=== PATIENT | male | born 1980 | race Caucasian/White ===

== ENCOUNTER → 2017-03-14 | Outpatient (CLI) | payer OTHER ==
[2017-03-14 15:25] LABS: HEMOGLOBIN 15.1 g/dl (13.5-18.0)
[2017-03-14 15:26] LABS: HEMATOCRIT 41.6 % (42.0-52.0)
== END ==
LOC: COL.LAB 14:54
PROVIDERS: Internal Medicine
DX: E83.110 Hereditary hemochromatosis (principal)

== ENCOUNTER → 2017-04-02 | Outpatient (CLI) | payer OTHER ==
[2017-04-02 12:33] LABS: HEMATOCRIT 43.6 % (42.0-52.0); HEMOGLOBIN 15.9 g/dl (13.5-18.0)
== END ==
LOC: COL.LAB 11:05
PROVIDERS: Internal Medicine
DX: E83.110 Hereditary hemochromatosis (principal)

== ENCOUNTER → 2017-04-16 | Outpatient (CLI) | payer OTHER ==
[2017-04-16 14:38] LABS: HEMATOCRIT 40.7 % (42.0-52.0); HEMOGLOBIN 14.7 g/dl (13.5-18.0)
== END ==
LOC: COL.LAB 13:58
PROVIDERS: Internal Medicine
DX: E83.110 Hereditary hemochromatosis (principal)

== ENCOUNTER → 2017-04-30 | Outpatient (CLI) | payer OTHER ==
[2017-04-30 15:45] LABS: HEMATOCRIT 44.8 % (42.0-52.0); HEMOGLOBIN 15.9 g/dl (13.5-18.0)
== END ==
LOC: COL.LAB 14:10
PROVIDERS: Internal Medicine
DX: E83.110 Hereditary hemochromatosis (principal)

== ENCOUNTER → 2017-05-21 | Outpatient (CLI) | payer OTHER ==
[2017-05-21 11:38] LABS: HEMOGLOBIN 15.1 g/dl (13.5-18.0)
[2017-05-21 11:39] LABS: HEMATOCRIT 42.1 % (42.0-52.0)
== END ==
LOC: COL.LAB 10:52
PROVIDERS: Internal Medicine
DX: E83.110 Hereditary hemochromatosis (principal)

== ENCOUNTER → 2017-08-13 | Outpatient (CLI) | payer BC ==
[2017-08-13 10:33] LABS: HEMATOCRIT 45.6 % (42.0-52.0); HEMOGLOBIN 16.5 g/dl (13.5-18.0)
== END ==
LOC: COL.LAB 10:22
PROVIDERS: Internal Medicine
DX: E83.110 Hereditary hemochromatosis (principal)

== ENCOUNTER → 2017-08-27 | Outpatient (CLI) | payer BC ==
[2017-08-27 10:50] LABS: HEMOGLOBIN 15.6 g/dl (13.5-18.0)
[2017-08-27 10:56] LABS: HEMATOCRIT 42.8 % (42.0-52.0)
== END ==
LOC: COL.LAB 09:59
PROVIDERS: Internal Medicine
DX: E83.110 Hereditary hemochromatosis (principal)

== ENCOUNTER → 2017-09-10 | Outpatient (CLI) | payer BC ==
[2017-09-10 15:44] LABS: HEMOGLOBIN 14.7 g/dl (13.5-18.0)
== END ==
LOC: COL.LAB 14:10
PROVIDERS: Internal Medicine
DX: Z01.89 Encounter for other specified special examinations (principal)

== ENCOUNTER → 2017-11-05 | Outpatient (CLI) | payer BC ==
[2017-11-05 16:34] LABS: HEMATOCRIT 44.4 % (42.0-52.0)
== END ==
LOC: COL.LAB 11:53
PROVIDERS: Internal Medicine
DX: E83.110 Hereditary hemochromatosis (principal)

== ENCOUNTER → 2017-12-24 | Outpatient (CLI) | payer BC ==
[2017-12-24 08:44] LABS: HEMATOCRIT 38.2 % (42.0-52.0)
== END ==
LOC: COL.LAB 08:11
PROVIDERS: Internal Medicine
DX: E83.110 Hereditary hemochromatosis (principal)

== ENCOUNTER → 2021-01-22 | Outpatient (CLI) | payer BC | LOC: COL.RAD 13:15 | DX: H53.123 Transient visual loss, bilateral (principal); H53.433 Sector or arcuate defects, bilateral; G43.009 Migraine without aura, not intractable, without status migrainosus | CPT/HCPCS: A9585 ==